=== PATIENT | male | born 1960 | race Caucasian/White ===

== ENCOUNTER 2018-04-04 11:20 | Inpatient (IN) | payer OTHER ==
[~2018-04-04] VITALS: Ht 186.7 cm; Wt 103.9 kg
--- NOTE | 2018-04-04 11:30 | NUR ---
Pt BIB EMS from street for slip and fall with R ankle pain. Deformity to R ankle, swelling. CSM intact. Pt denies hitting head, no neck or back pain. No hip pain. Pt received 100 mcg fentanyl [employer].
[2018-04-04] MEDS ORDERED: HYDROmorphone 2 MG/ML, 1ML ONE ×3 (11:51→21:50)
[2018-04-04] MEDS ORDERED: ONDANSETRON 2MG/ML, 2ML ONE ×2 (11:51→20:00)
[2018-04-04] MEDS ORDERED: ONDANSETRON 2MG/ML, 2ML IVPush ONE (12:00)
[2018-04-04] MEDS: HYDROmorphone 2 MG/ML, 1ML IVPush PRN ×2 (12:00→17:12)
[2018-04-04] MEDS ORDERED: PLEASE ENTER ALLERGIES MC SCH (12:30)
[2018-04-04] MEDS ORDERED: SODIUM CHLORIDE 0.9% 1,000 ML IV ONE (12:45)
[2018-04-04 12:47] LABS: BASOPHILS # (AUTO) 0.03 x10^3/uL (0-0.1); BASOPHILS % (AUTO) 0 % (0-1); EOSINOPHILS # (AUTO) 0.05 x10^3/uL (0-0.4); EOSINOPHILS % (AUTO) 1 % (1-7); LYMPHOCYTES # (AUTO) 1.18 x10^3/uL (1-3.4); LYMPHOCYTES % (AUTO) 13 % (22-44); MD NO; MEAN CORPUSCULAR HEMOGLOBIN 31.9 pg (27.5-34.5); MEAN CORPUSCULAR HGB CONC 34.1 g/dL (33.2-36.2); MEAN CORPUSCULAR VOLUME 93.5 fL (81-97); MEAN PLATELET VOLUME 8.9 fL (7.4-10.4); MONOCYTES # (AUTO) 0.76 x10^3/uL (0.2-0.8); MONOCYTES % (AUTO) 8 % (2-9); NEUTROPHILS # (AUTO) 7.19 x10^3/uL (1.8-6.8); NEUTROPHILS % (AUTO) 78 % (42-75); PLATELET COUNT 146 x10^3/uL (130-400); RED BLOOD COUNT 4.99 x10^6/uL (4.38-5.82); RED CELL DISTRIBUTION WIDTH 13.5 % (9.4-14.8)
[2018-04-04 12:57] LABS: ALBUMIN 4.2 g/dL (3.4-5.0); ANION GAP 7 mmol/L (5-15); CALCIUM 8.8 mg/dL (8.5-10.1); CHLORIDE 105 mmol/L (98-107); CREATININE 1.03 mg/dL (0.7-1.3)
[2018-04-04 12:58] LABS: INTERNATIONAL NORMALIZED RATIO 1.01 (0.93-1.1); PROTHROMBIN TIME 10.7 Seconds (9.6-11.5)
[2018-04-04] MEDS ORDERED: SODIUM CHLORIDE FLUSH 10ML SYR IVF PRN (13:00)
[2018-04-04] MEDS ORDERED: ONDANSETRON 2MG/ML, 2ML IVPush PRN ×2 (13:00→21:30)
[2018-04-04] MEDS ORDERED: SODIUM CHLORIDE FLUSH 10ML SYR IVF ONE (13:00)
[2018-04-04] MEDS: HYDROmorphone 1 MG/ML, 1ML IVPush PRN ×2 (13:18→17:13)
[2018-04-04 14:12] VITALS: BP 144/81
[2018-04-04 14:59] VITALS: BP 151/90
[2018-04-04] MEDS ORDERED: HYDROmorphone 2 MG/ML, 1ML IVPush PRN ×2 (18:00→21:30)
[2018-04-04] MEDS ORDERED: FENTANYL PF 250 MCG/5ML ONE (18:16)
[2018-04-04] MEDS ORDERED: MIDAZOLAM 1 MG/ML, 2ML ONE (18:21)
[2018-04-04] MEDS ORDERED: BUPIVACAINE/PF-EPI 0.5% 1:200K ONE (19:04)
[2018-04-04] MEDS ORDERED: NEOSPORIN OINT, 15GM ONE (19:05)
[2018-04-04] MEDS ORDERED: PROPOFOL 10 MG/ML, 50ML ONE (20:00)
[2018-04-04] MEDS ORDERED: SUCCINYLCHOLINE 20 MG/ML, 10ML ONE (20:00)
[2018-04-04] MEDS ORDERED: ROCURONIUM 10 MG/ML,10ML ONE (20:00)
[2018-04-04] MEDS ORDERED: DEXAMETHASONE 4 MG/ML, 1ML ONE (20:00)
[2018-04-04] MEDS ORDERED: CEFAZOLIN 1,000 MG ONE (20:00)
[2018-04-04] MEDS ORDERED: ONDANSETRON 2MG/ML, 2ML IV PRN (20:30)
[2018-04-04] MEDS ORDERED: ACETAMINOPHEN 325 MG TABLET PO PRN (20:30)
[2018-04-04] MEDS ORDERED: OXYcodone 5 MG/5 ML ORAL.SOL UDC PO PRN (20:30)
[2018-04-04] MEDS ORDERED: MEPERIDINE/PF 25MG/0.5ML IVPush PRN (20:30)
[2018-04-04] MEDS ORDERED: MORPHINE SULFATE 4 MG/ML, 1ML IVPush PRN (20:30)
[2018-04-04] MEDS ORDERED: MIDAZOLAM 1 MG/ML, 2ML IV PRN (20:30)
[2018-04-04] MEDS ORDERED: PROMETHAZINE 12.5 MG SUPP PR PRN (20:30)
[2018-04-04] MEDS ORDERED: EPHEDRINE 50 MG/ML, 1ML IM PRN (20:30)
[2018-04-04] MEDS ORDERED: DIPHENHYDRAMINE 50 MG/ML, 1ML IVPush PRN (20:30)
[2018-04-04] MEDS ORDERED: PROMETHAZINE 25 MG SUPP PR PRN (20:30)
[2018-04-04] MEDS ORDERED: PROMETHAZINE 25 MG/ML, 1ML IV PRN (20:30)
[2018-04-04] MEDS ORDERED: ONDANSETRON ODT 8 MG PO PRN (20:30)
[2018-04-04] MEDS ORDERED: MEPERIDINE/PF 25MG/ML,1ML ONE (21:26)
[2018-04-04] MEDS ORDERED: OXYcodone 5 MG/5 ML ORAL.SOL UDC ONE (21:27)
[2018-04-04] MEDS ORDERED: FENTANYL PF 100 MCG/2ML ONE (21:27)
[2018-04-04] MEDS ORDERED: SENNA/DOCUSATE TABLET PO PRN (21:30)
[2018-04-04] MEDS ORDERED: BISACODYL 10 MG SUPP PR PRN (21:30)
[2018-04-04] MEDS ORDERED: MAGNESIUM HYDROXIDE 8%, 30ML UDC PO PRN (21:30)
[2018-04-04] MEDS: FENTANYL PF 100 MCG/2ML IV PRN ×2 (21:38→21:48)
[2018-04-04] MEDS ORDERED: MORPHINE SULFATE 4 MG/ML, 1ML ONE (21:53)
[2018-04-04 22:27] VITALS: BP 137/82
[2018-04-04] MEDS: CEFAZOLIN PMX 1GM/50ML 50 ML IVPB SCH (23:19)
[2018-04-04] MEDS: KETOROLAC 30 MG/1 ML IVPush SCH (23:19)
[2018-04-04] MEDS: POTASSIUM CHLORIDE 20 MEQ in D5%-0.45% NACL 1,000 ML IV SCH (23:19)
[2018-04-05 00:06] VITALS: BP 105/64
[2018-04-05] MEDS: OXYcodone IR 5MG TABLET PO PRN ×4 (02:21→12:31)
[2018-04-05] MEDS: D5%-0.45NACL+KCL 20MEQ 1,000 ML IV SCH ×3 (02:36→16:00)
[2018-04-05 04:09] VITALS: BP 106/62
[2018-04-05] MEDS: CEFAZOLIN PMX 1GM/50ML 50 ML IVPB SCH (06:45)
[2018-04-05] MEDS: KETOROLAC 30 MG/1 ML IVPush SCH (06:45)
[2018-04-05 06:55] VITALS: BP 113/65
[2018-04-05] MEDS: POTASSIUM CHLORIDE 20 MEQ in D5%-0.45% NACL 1,000 ML IV SCH (07:26)
[2018-04-05] MEDS ORDERED: ENOXAPARIN 40 MG/0.4 ML SQ SCH (09:00)
[2018-04-05] MEDS ORDERED: DOCUSATE 100 MG CAPSULE PO SCH (09:00)
[2018-04-05 13:52] VITALS: BP 127/67
[2018-04-05 16:02] VITALS: BP 118/71
[2018-04-05] MEDS ORDERED: OXYC5CAP2 PO (16:43)
[2018-04-05] MEDS ORDERED: ASPI81TA45 PO (16:43)
== END 2018-04-05 17:02 | disposition home or self-care (01) | DRG 494 ==
LOC: ED 12:20 → EDIP 12:45 → 4NOR 14:03 → DCLOUNGE 04-05 16:42
PROVIDERS: ADMIT Orthopaedic Surgery; ATTEND Orthopaedic Surgery
PROC: 0QSG06Z Reposition Right Tibia with Intramedullary Internal Fixation Device, Open Approach (ICD-10-PCS; principal; 2018-04-04 21:15)
DX: S82.241A Displaced spiral fracture of shaft of right tibia, initial encounter for closed fracture (principal); S82.831A Other fracture of upper and lower end of right fibula, initial encounter for closed fracture; W00.0XXA Fall on same level due to ice and snow, initial encounter; S82.841A Displaced bimalleolar fracture of right lower leg, initial encounter for closed fracture; M19.90 Unspecified osteoarthritis, unspecified site; Y92.89 Other specified places as the place of occurrence of the external cause; Y99.8 Other external cause status; Y93.K1 Activity, walking an animal
CPT/HCPCS: 29515; 36415; 71045; 76001; 80048; 82040; 85025; 85610; 85730; 93005; 96374; 96375; C1713; G0378; J0690; J1100; J1170; J1650; J1885; J2175; J2250; J2405; J2704; J3010; J3480; J0330